=== PATIENT | female | born 1985 | race Caucasian/White ===

== ENCOUNTER 2022-09-30 12:23 | Outpatient (CLI) | payer BC, SELFPAY ==
[2022-09-30 22:00] LABS: Albumin* 4.8 g/dL (3.3-5.0)
[2022-09-30 22:01] LABS: Chloride* 104 mmol/L (96-114); Potassium* 4.6 mmol/L (3.6-5.1); Sodium* 140 mmol/L (135-149)
[2022-09-30 22:03] LABS: Aspartate Amino Transferase* 26 U/L (12-35); Bilirubin Total* 0.5 mg/dL (0.1-1.5); Carbon Dioxide* 29 mmol/L (20-32); Creatinine* 0.7 mg/dL (0.5-1.5); Estimated Glomerular Filt Rate 115 ml/min
[2022-09-30 22:04] LABS: Alanine Aminotransferase* 24 U/L (4-35); Alkaline Phosphatase* 41 U/L (40-150); Blood Urea Nitrogen* 13 mg/dL (5-24); Calcium* 9.8 mg/dL (8.4-10.6); Glucose* 91 mg/dL (60-115); Total Protein* 7.6 g/dL (6.0-8.3)
== END 2022-09-30 12:24 | disposition home or self-care (01) ==
PROVIDERS: PCP Family Medicine; Visit Provider Family Medicine
DX: R07.9 Chest pain, unspecified (principal); R59.1 Generalized enlarged lymph nodes; R53.83 Other fatigue
CPT/HCPCS: 80053; 84443

== ENCOUNTER 2022-10-07 12:47 | Outpatient (CLI) | payer BC, SELFPAY ==
--- NOTE | 2022-10-07 13:00 | CRLHL7_ITS ---
For Patients: As a result of the Century Cures Act, medical imaging exams and procedure reports are released immediately into your electronic medical record. You may view this report before your referring provider. If you have questions, please contact your health care provider. Indication: lymphadenopathy bilateral neck, left greater than right Technique: Grayscale and color Doppler ultrasound of the neck performed bilaterally. Comparison: None Findings: Enlarged left cervical lymph nodes are present measuring 3.2 x 0.7 x 1.1 cm, 2.2 x 0.6 x 2.0 cm and 2.4 x 0.4 x 0.8 cm. Normal vascularity noted. The cortex is mildly thickened measuring up to 4 millimeters. Enlarged right cervical lymph node also present measuring 2.5 x 0.6 x 1.2 cm. Impression: Bilateral cervical adenopathy, left greater than right. Dictated by Dante Flores MD @ 10/08/2022 9:23:42 AM (Electronically Signed)
== END 2022-10-07 12:48 | disposition home or self-care (01) ==
LOC: US 12:48
PROVIDERS: PCP Family Medicine; Visit Provider Family Medicine
DX: R59.1 Generalized enlarged lymph nodes (principal); R07.9 Chest pain, unspecified
CPT/HCPCS: 76536

== ENCOUNTER 2024-07-05 10:13 | Outpatient (CLI) | payer BC, SELFPAY | END 2024-07-05 10:14 | disposition home or self-care (01) | PROVIDERS: Visit Provider Obstetrics & Gynecology | DX: N92.1 Excessive and frequent menstruation with irregular cycle (principal); N93.0 Postcoital and contact bleeding; Z11.3 Encounter for screening for infections with a predominantly sexual mode of transmission | CPT/HCPCS: 84443; 87491; 87591 ==

== ENCOUNTER 2024-07-12 10:33 | Outpatient (CLI) | payer BC, SELFPAY ==
--- NOTE | 2024-07-12 10:45 | CRLHL7_ITS ---
For Patients: As a result of the Century Cures Act, medical imaging exams and procedure reports are released immediately into your electronic medical record. You may view this report before your referring provider. If you have questions, please contact your health care provider. INDICATION: Abnormal uterine bleeding COMPARISON: none TECHNIQUE: 2D polanco scale and color Doppler images were acquired of the pelvis using a transabdominal and transvaginal approach. FINDINGS: Sonographic images demonstrate a normal size and smooth outer contour of the uterus. Uterus measures 7.1 cm in length by 4.5 cm in AP diameter by 5.2 cm in transverse dimension. The myometrium has a normal uniform echotexture. The endometrial lining measures 9.4 mm in composite thickness. The right ovary measures 4.8 x 2.0 x 3.0 cm in size and the left ovary measures 3.6 x 1.8 x 3.4 cm. The ovaries demonstrate normal arterial and venous blood flow on color Doppler analysis. Left paraovarian cyst is present measuring 4.7 x 2.5 x 2.9 cm. IMPRESSION: Endometrial thickness 10.4 millimeters. No endometrial fluid. No uterine fibroid. Incidental left paraovarian cyst measures 4.7 x 2.5 x 2.9 cm. Dictated by Dante Flores MD @ 07/13/2024 10:03:02 AM (Electronically Signed)
== END 2024-07-12 10:34 | disposition home or self-care (01) ==
LOC: US 10:34
PROVIDERS: Visit Provider Obstetrics & Gynecology
DX: N93.9 Abnormal uterine and vaginal bleeding, unspecified (principal); R93.89 Abnormal findings on diagnostic imaging of other specified body structures; N83.202 Unspecified ovarian cyst, left side
CPT/HCPCS: 76830; 76856

== ENCOUNTER 2024-08-03 07:31 | Outpatient (CLI) | payer BC, SELFPAY ==
--- NOTE | 2024-08-03 07:45 | CRLHL7_ITS ---
For Patients: As a result of the Cures Act, medical imaging exams and procedure reports are released immediately into your electronic medical record. You may view this report before your referring provider. If you have questions, please contact your health care provider. BILATERAL DIAGNOSTIC MAMMOGRAM WITH COMPUTER-AIDED DETECTION AND TOMOSYNTHESIS, 08/03/2024 CLINICAL HISTORY: LEFT breast lump. COMPARISON: None. TECHNIQUE: Digital BILATERAL mammogram in 4 projections with computer-aided detection. Tomosynthesis was used in this interpretation. Real-time ultrasound imaging of LEFT breast with imaging documentation. BREAST COMPOSITION: The breasts are heterogeneously dense, which may obscure small masses. FINDINGS: 3D CC/MLO BILATERAL mammogram images submitted. Nodular density within the LEFT breast noted corresponding to the palpable abnormality. No architectural distortion. No suspicious calcifications. No adenopathy. Targeted LEFT breast ultrasound performed at 4 o`clock, 2 cm from the nipple. In this location, there is a solid hypoechoic nodule measuring 1.3 x 0.8 x 1.4 cm. Distal acoustic enhancement is present. IMPRESSION: Benign fibroadenoma left breast 4 o`clock 2 cm from the nipple measuring 1.4 cm. No evidence of malignancy. RECOMMENDATIONS: Clinical follow-up. Age-appropriate screening mammography. A lay language report of this examination will be provided to the patient. BI-RADS Category 2. Benign Dictated by Dante Flores MD @ 08/03/2024 12:04:04 PM ORION/alcides DW/Dictated by: Dante Flores MD @ 08/03/2024 12:04:00 PM (Electronically Signed)
--- NOTE | 2024-08-03 08:15 | CRLHL7_ITS ---
For Patients: As a result of the Century Cures Act, medical imaging exams and procedure reports are released immediately into your electronic medical record. You may view this report before your referring provider. If you have questions, please contact your health care provider. LEFT BREAST ULTRASOUND, 08/03/2024 Please see BILATERAL diagnostic mammogram done the same day for combined report. Dante Flores M.D. Diagnostic Radiologist [email or web address] Transcribed: 12:09 pm DW/Dictated by: Dante Flores MD @ 08/03/2024 12:04:00 PM (Electronically Signed)
== END 2024-08-03 07:32 | disposition home or self-care (01) ==
LOC: MAMMO 07:32
PROVIDERS: Visit Provider Obstetrics & Gynecology
DX: N63.20 Unspecified lump in the left breast, unspecified quadrant (principal); D24.2 Benign neoplasm of left breast
CPT/HCPCS: 76642; 77066; G0279

== ENCOUNTER 2024-08-09 10:28 | Outpatient (CLI) | payer BC, SELFPAY ==
--- NOTE | 2024-08-09 10:45 | CRLHL7_ITS ---
For Patients: As a result of the Century Cures Act, medical imaging exams and procedure reports are released immediately into your electronic medical record. You may view this report before your referring provider. If you have questions, please contact your health care provider. INDICATION: follow up Lt paraovarian cyst COMPARISON: 07/12/2024 TECHNIQUE: 2D polanco scale and color Doppler images were acquired of the pelvis using a transabdominal and transvaginal approach. FINDINGS: Sonographic images demonstrate a normal size and smooth outer contour of the uterus. Uterus measures 7.7 cm in length by 4.4 cm in AP diameter by 5.2 cm in transverse dimension. The myometrium has a normal uniform echotexture. The endometrial lining appears normal and measures 7.7 mm in composite thickness. The right ovary measures 4.1 x 1.8 x 3.2 cm in size and the left ovary measures 4.2 x 1.8 x 3.1 cm. The ovaries demonstrate normal arterial and venous blood flow on color Doppler analysis. Pelvic free fluid is present, mild. Some of the fluid within the left adnexa extends to the posterior cul-de-sac and appears somewhat lobulated. A discrete cystic mass is not appreciated. IMPRESSION: No suspicious adnexal mass. Mild pelvic free fluid is present including some loculated fluid within the left adnexa/cul-de-sac. Normal ovaries. Dictated by Dante Flores MD @ 08/10/2024 9:10:33 AM (Electronically Signed)
== END 2024-08-09 10:29 | disposition home or self-care (01) ==
LOC: US 10:29
PROVIDERS: Visit Provider Obstetrics & Gynecology
DX: N83.202 Unspecified ovarian cyst, left side (principal)
CPT/HCPCS: 76830; 76856

== ENCOUNTER 2025-06-05 11:09 | Outpatient (CLI) | payer BC, SELFPAY | END 2025-06-05 11:10 | disposition home or self-care (01) | DX: R06.02 Shortness of breath (principal) | CPT/HCPCS: 84443 ==

== ENCOUNTER 2025-07-11 09:29 | Outpatient (CLI) | payer BC, SELFPAY | END 2025-07-11 09:30 | disposition home or self-care (01) | PROVIDERS: PCP Family Medicine; Visit Provider Family Medicine | DX: Z13.6 Encounter for screening for cardiovascular disorders (principal); R00.2 Palpitations | CPT/HCPCS: 80053; 80061 ==

== ENCOUNTER 2025-07-18 09:55 | Outpatient (CLI) | payer BC, SELFPAY | END 2025-07-18 09:56 | disposition home or self-care (01) | LOC: RAD 09:56 | PROVIDERS: PCP Family Medicine; Visit Provider Family Medicine | DX: R00.2 Palpitations (principal); R94.31 Abnormal electrocardiogram [ECG] [EKG] | CPT/HCPCS: 93306 ==